=== PATIENT | male | born 1940 | race Caucasian/White ===

== ENCOUNTER 2016-10-03 20:47 | Emergency (ER) | payer MEDICARE, MEDICAID ==
[~2016-10-03] VITALS: Ht 172.7 cm; Wt 89.8 kg
[~2016-10-03 20:47] MED LIST: DUTA0.5C PO; ESOM20CA PO; METO50TA7 PO; ROSU5TAB PO; TAMS-12 PO
--- NOTE | 2016-10-03 22:00 | NUR ---
PT BIB DAUGHTER C/O LILIANA FLANK PAIN SINCE YESTERDAY WITH ONE EPISODE OF HEMATURIA ON MONDAY. DENIES N/V/D. DENIES HEMATURIA OR DYSURIA CURRENTLY. NAD NOTED. RESP EVEN UNLABORED. SKIN WARM NONDIAPHORETIC. NAD NOTED. AMBULATORY WITH STEADY GAIT. IN ER BED 12.
[2016-10-03 22:01] LABS: APPEARANCE,URINE CLEAR (CLEAR); BILIRUBIN,URINE NEGATIVE (NEGATIVE); BLOOD, URINE 2+ Ery/uL (NEGATIVE); COLOR,URINE YELLOW (YELLOW); KETONES,URINE NEGATIVE (NEGATIVE); LEUKOCYTE ESTERASE ,URINE NEGATIVE (NEGATIVE); NITRITE, URINE NEGATIVE (NEGATIVE); PROTEIN,URINE NEGATIVE (NEGATIVE); UGLUCOSE NEGATIVE (NEGATIVE); UROBILINOGEN,URINE 0.2 EU/dL (0.2)
[2016-10-03 22:06] LABS: BASOPHILS % (AUTO) 0.3 % (0.0-2.0); EOSINOPHILS # (AUTO) 0.2 /CMM (0.0-0.7); EOSINOPHILS % (AUTO) 1.9 % (0.0-6.0); HEMATOCRIT 44 % (39-51); HEMOGLOBIN 14.5 g/dL (13.5-17.5); LYMPHOCYTES # (AUTO) 2.1 /CMM (0.8-4.8); LYMPHOCYTES % (AUTO) 21.7 % (20.0-44.0); MEAN CORPUSCULAR HEMOGLOBIN 27 PG (26.0-33.0); MEAN CORPUSCULAR HGB CONC 33 g/dl (31.0-36.0); MEAN CORPUSCULAR VOLUME 82 fL (80-96); MONOCYTES # (AUTO) 0.7 /CMM (0.1-1.30); MONOCYTES % (AUTO) 7.9 % (2.0-12.0); NEUTROPHILS # (AUTO) 6.4 /CMM (1.8-8.9); NEUTROPHILS % (AUTO) 68.2 % (43.0-81.0); PLATELET COUNT (AUTO) 137 /CMM (150-450); RDW COEFFICIENT OF VARIATION 13.4 (11.5-15.0); WHITE BLOOD COUNT (AUTO) 9.4 K/uL (4.3-11.0)
[2016-10-03 22:06] LABS: ADD URINE CULTURE NO; BACTERIA,URINE None seen /HPF (None Seen); SQUAMOUS EPITHELIAL CELL,UR Rare /HPF (None Seen); WBC,URINE 0-2 /HPF (0-3)
[2016-10-03 22:15] LABS: CALCIUM, SERUM 9.7 mg/dL (8.5-10.1); CREATININE 1.7 mg/dL (0.6-1.3); POTASSIUM 4.5 mmol/L (3.5-5.1)
[2016-10-03 22:20] LABS: ALBUMIN 4.5 g/dL (3.4-5.0); BILIRUBIN,DIRECT 0.1 mg/dL (0.0-0.2); BILIRUBIN,TOTAL 0.6 mg/dL (0.2-1.0); TOTAL PROTEIN, SERUM 7.8 g/dL (6.4-8.2)
[2016-10-03 22:21] LABS: INR 1.16 (0.87-1.13); PROTHROMBIN TIME 12.5 SECS (9.5-12.7)
[2016-10-03] MEDS ORDERED: ONDANSETRON 4 MG TAB.RAPDIS ONE (23:05)
[2016-10-03] MEDS ORDERED: HYDROCODONE/APAP 10/325MG 1 EA TABLET ONE (23:06)
--- NOTE | 2016-10-03 23:11 | NUR ---
PT REFUSED JOHNY AND KLEVER, STATING "IT WILL MAKE ME DROWSY. I HAVE GOOD TYLENOL AT HOME, VERY GOOD TYLENOL."
--- NOTE | 2016-10-03 23:16 | NUR ---
Patient discharged to home in stable condition. Written and verbal after care instructions given. Patient verbalizes understanding of instruction. AMBULATORY WITH STEADY GAIT. NAD NOTED. PT CHOOSES TO LEAVE WITHOUT CT SCAN ORDERED.
[2016-10-03 23:19] VITALS: BP 164/85
[2016-10-03] MEDS ORDERED: ONDANSETRON 4 MG TAB.RAPDIS SL ONE (23:30)
[2016-10-03] MEDS ORDERED: HYDROCODONE/APAP 10/325MG 1 EA TABLET PO ONE (23:30)
== END 2016-10-03 23:22 | disposition home or self-care (01) ==
LOC: ER 20:49
DX: R10.9 Unspecified abdominal pain (principal); R31.29 Other microscopic hematuria; I10 Essential (primary) hypertension
CPT/HCPCS: 36415; 80048; 80076; 81001; 83690; 85025; 85730; 99284; A4606; 81000-TC; Q0162; Z7610

== ENCOUNTER 2017-08-16 10:24 | Emergency (ER) | payer MEDICARE, MEDICAID ==
[~2017-08-16] VITALS: Ht 165.1 cm; Wt 87.5 kg
--- NOTE | 2017-08-16 10:30 | NUR ---
PT CAME WITH C/O COUGH/FEVER AND SOB X 1 MONTH. NAD NOTED. VSS. SEEN BY MD FOR EVAL. SAFETY AND COMFORT MEASURES PROVIDED. WILL MONITOR.
--- NOTE | 2017-08-16 10:50 | NUR ---
IV ACCESS STARTED, BLOOD DRAWN FOR LABS. MEDICATED ORDERED.
[2017-08-16] MEDS ORDERED: ALBUTEROL FS 2.5 MG/0.5 ML VIAL.NEB NEB ONE (11:00)
[2017-08-16] MEDS ORDERED: DEXAMETHASONE SOD PHOSPHATE 10 MG/ML VIAL IV ONE (11:00)
[2017-08-16] MEDS ORDERED: IPRATROPIUM NEB FS 0.5 MG/2.5 ML AMPUL.NEB NEB ONE (11:00)
--- NOTE | 2017-08-16 11:00 | NUR ---
RT AT BS FOR BREATHING TX.
[2017-08-16] MEDS ORDERED: ALBUTEROL FS 2.5 MG/3 ML VIAL.NEB ONE (11:08)
[2017-08-16] MEDS ORDERED: IPRATROPIUM NEB FS 0.5 MG/2.5 ML AMPUL.NEB ONE (11:08)
[2017-08-16 11:15] LABS: BASOPHILS # (AUTO) 0.1 /CMM (0.0-0.2); BASOPHILS % (AUTO) 0.9 % (0.0-2.0); EOSINOPHILS # (AUTO) 0.1 /CMM (0.0-0.7); EOSINOPHILS % (AUTO) 1.6 % (0.0-6.0); HEMATOCRIT 42 % (39-51); LYMPHOCYTES # (AUTO) 1.8 /CMM (0.8-4.8); LYMPHOCYTES % (AUTO) 23.7 % (20.0-44.0); MEAN CORPUSCULAR HEMOGLOBIN 27 PG (26.0-33.0); MEAN CORPUSCULAR HGB CONC 34 g/dl (31.0-36.0); MEAN CORPUSCULAR VOLUME 81 fL (80-96); MONOCYTES # (AUTO) 0.7 /CMM (0.1-1.30); MONOCYTES % (AUTO) 9.1 % (2.0-12.0); NEUTROPHILS # (AUTO) 4.9 /CMM (1.8-8.9); NEUTROPHILS % (AUTO) 64.7 % (43.0-81.0); PLATELET COUNT (AUTO) 168 /CMM (150-450); RDW COEFFICIENT OF VARIATION 12.4 (11.5-15.0); RED BLOOD CELL COUNT(AUTO) 5.17 MIL/uL (4.5-6.0); WHITE BLOOD COUNT (AUTO) 7.6 K/uL (4.3-11.0)
[2017-08-16] MEDS ORDERED: DEXAMETHASONE SOD PHOSPHATE 10 MG/ML VIAL ONE (11:18)
[2017-08-16 11:26] LABS: CALCIUM, SERUM 9.3 mg/dL (8.5-10.1); CARBON DIOXIDE 26 mmol/L (21-32); CHLORIDE 104 mmol/L (98-107); CREATININE 1.8 mg/dL (0.6-1.3); GLUCOSE 192 mg/dL (74-106); POTASSIUM 3.7 mmol/L (3.5-5.1); SODIUM SERUM 138 mmol/L (136-145); UREA NITROGEN, BLOOD 24 mg/dL (7-18)
[2017-08-16 11:28] LABS: INR 1.02 (0.85-1.15)
[2017-08-16 11:33] LABS: TROPONIN I < 0.017 ng/mL (0.00-0.056)
[2017-08-16 11:40] LABS: ALANINE AMINOTRANSFERASE 20 U/L (12-78); ALBUMIN 3.8 g/dL (3.4-5.0); ALKALINE PHOSPHATASE 54 U/L (46-116); ASPARTATE AMINOTRANSFERASE 12 U/L (15-37); B-TYPE NATRIURETIC PEPTIDE 193 PG/ML (0-125); BILIRUBIN,DIRECT 0.1 mg/dL (0.0-0.2); BILIRUBIN,TOTAL 0.6 mg/dL (0.2-1.0); TOTAL PROTEIN, SERUM 7.5 g/dL (6.4-8.2)
[2017-08-16] MEDS ORDERED: FUROSEMIDE 20 MG/2 ML VIAL IV ONE (12:00)
[2017-08-16] MEDS ORDERED: FUROSEMIDE 20 MG/2 ML VIAL ONE (12:10)
--- NOTE | 2017-08-16 12:40 | NUR ---
IV removed. Catheter intact and site benign. Pressure and 4x4 applied to site. No bleeding noted.
[2017-08-16 12:48] VITALS: BP 148/79
--- NOTE | 2017-08-16 12:48 | NUR ---
Patient discharged to home in stable condition. Written and verbal after care instructions given. Patient verbalizes understanding of instruction.
== END 2017-08-16 12:49 | disposition home or self-care (01) ==
LOC: ER 10:26
DX: R05 Cough (principal); J90 Pleural effusion, not elsewhere classified; J44.9 Chronic obstructive pulmonary disease, unspecified; I10 Essential (primary) hypertension; F10.10 Alcohol abuse, uncomplicated; Z87.891 Personal history of nicotine dependence
CPT/HCPCS: 36415; 71045; 80048; 80076; 83880; 84484; 85025; 85730; 93005; 94640 ×2; 96374; 96375; 99285; A4606; J1100; J1940; Z7610

== ENCOUNTER 2021-08-27 00:43 | Inpatient (IN) | payer MEDICARE, OTHER ==
[~2021-08-27] VITALS: Ht 172.7 cm; Wt 89.8 kg
--- NOTE | 2021-08-27 00:54 | NUR ---
TO ER BED 3. [id number] FROM HOME C/O SHARP LEFT SIDED CHEST PAIN/ARMPIT AREA STARTING SUDDENLY WHILE ASLEEP. PT DENIES NAUSEA AND VOMITING. PT CHANGED INTO GOWN AND CONNECTED TO MONITOR. NOT IN RESPIRATIRY DISTRESS. AWAITING MD HERNANDEZ.
--- NOTE | 2021-08-27 00:55 | NUR ---
XRAY AT BEDSIDE
[2021-08-27] MEDS ORDERED: ASPIRIN 325 MG TABLET ONE (00:58)
--- NOTE | 2021-08-27 00:59 | NUR ---
PANTOGRAPH MACHINE SET UP OPERATOR AT PT'S BEDSIDE
[2021-08-27] MEDS ORDERED: ASPIRIN 325 MG TABLET PO ONE (01:00)
--- NOTE | 2021-08-27 01:01 | NUR ---
PT REFUSED ASPIRIN DUE TO ALLERGY
--- NOTE | 2021-08-27 01:13 | NUR ---
COVID ANTIGEN SWAB COLLECTED AND SENT TO LAB
--- NOTE | 2021-08-27 01:13 | NUR ---
Leno otero in [place] - 08/27/21 at 0114 by ARSALAN COVID ANTIGEN SWAB COLLECTED AND SEND TO LAB
[2021-08-27 01:17] LABS: BASOPHILS # (AUTO) 0.1 K/uL (0.0-0.2); BASOPHILS % (AUTO) 1.2 % (0.0-2.0); EOSINOPHILS % (AUTO) 6.4 % (0.0-6.0); HEMATOCRIT 45 % (39-51); LYMPHOCYTES # (AUTO) 2.3 K/uL (0.8-4.8); LYMPHOCYTES % (AUTO) 35.3 % (20.0-44.0); MEAN CORPUSCULAR HGB CONC 33 g/dl (31.0-36.0); MEAN CORPUSCULAR VOLUME 81 fL (80-96); MONOCYTES # (AUTO) 0.6 K/uL (0.1-1.30); MONOCYTES % (AUTO) 8.9 % (2.0-12.0); NEUTROPHILS # (AUTO) 3.1 K/uL (1.8-8.9); NEUTROPHILS % (AUTO) 48.2 % (43.0-81.0); PLATELET COUNT (AUTO) 148 K/uL (150-450); RED BLOOD CELL COUNT(AUTO) 5.54 MIL/uL (4.5-6.0); WHITE BLOOD COUNT (AUTO) 6.5 K/uL (4.3-11.0)
[2021-08-27] MEDS ORDERED: IBUPROFEN 400 MG TABLET ONE (01:26)
[2021-08-27 01:29] LABS: CALCIUM, SERUM 10.4 mg/dL (8.5-10.1); CARBON DIOXIDE 26 mmol/L (21-32); CHLORIDE 103 mmol/L (98-107); CREATININE 1.9 mg/dL (0.6-1.3); GLUCOSE 87 mg/dL (74-106); POTASSIUM 3.8 mmol/L (3.5-5.1); SODIUM SERUM 139 mmol/L (136-145); UREA NITROGEN, BLOOD 21 mg/dL (7-18)
[2021-08-27] MEDS ORDERED: IBUPROFEN 400 MG TABLET PO ONE (01:30)
[2021-08-27 01:42] LABS: ALANINE AMINOTRANSFERASE 16 U/L (12-78); ALBUMIN 4.5 g/dL (3.4-5.0); ALKALINE PHOSPHATASE 51 U/L (46-116); ASPARTATE AMINOTRANSFERASE 8 U/L (15-37); BILIRUBIN,DIRECT 0.1 mg/dL (0.0-0.2); BILIRUBIN,TOTAL 0.3 mg/dL (0.2-1.0); TOTAL PROTEIN, SERUM 8.2 g/dL (6.4-8.2)
--- NOTE | 2021-08-27 03:25 | NUR ---
EPIC PANEL PAGED
--- NOTE | 2021-08-27 04:11 | NUR ---
REPORT GIVEN TO KHOI GAFFNEY FOR GORAN
[2021-08-27] MEDS ORDERED: ACETAMINOPHEN 325 MG TABLET PO PRN (04:30)
[2021-08-27] MEDS ORDERED: HYDROCODONE/APAP 5/325MG TABLET PO PRN (04:30)
[2021-08-27] MEDS ORDERED: MORPHINE SULFATE INJ 2 MG/ML DISP.SYRIN IV PRN (04:30)
[2021-08-27] MEDS ORDERED: MAGNESIUM HYDROXIDE 30 ML UDC PO PRN (04:30)
[2021-08-27] MEDS ORDERED: TEMAZEPAM 15 MG CAPSULE PO PRN (04:30)
[2021-08-27] MEDS ORDERED: ONDANSETRON HCL/PF 4 MG/2 ML VIAL IVP PRN (04:30)
[2021-08-27] MEDS ORDERED: Z GUARD REMEDY 4 OZ OINT TP PRN (04:30)
[2021-08-27] MEDS ORDERED: MAG HYDROX/AL HYDROX/SIMETH 30 ML UDC PO PRN (04:30)
--- NOTE | 2021-08-27 04:35 | NUR ---
RN NOTES RECEIVED CARE OF PATIENT FROM ER NURSE, PATIENT A/O X4, SWISS SPEAKING, ABLE TO MAKE NEEDS KNOWN WITH FACIAL AND HAND GESTURES, SPEAKS LITTLE [place]. PATIENT COMPLAINS OF CHEST PAIN, PAIN IS RELIEVED WITH REST. NO SIGNIFICANT FINDINGS UPON INITIAL NURSING ASSESSMENTS. PATIENT ON ROOM AIR, O2 SAT IS 99%, NO SOB NOTED, BREATHING EVEN AND UNLABORED. PATIENT IS ON TELE MONITOR CURRENTLY SHOWING NSR WITH HR OF 88BPM. PATIENT NOTED WITH IV ACCESS ON LAC G#18, PATENT AND FLUSHES WELL. SAFETY MEASURES IN PLACE. BED ALARM ON, BED AT LOWEST POSITION WITH WHEELS LOCKED IN PLACE, CALL LIGHT WITHIN REACH. WILL CONTINUE TO MONITOR PATIENT.
[2021-08-27 05:03] VITALS: BP 152/90
[2021-08-27] MEDS ORDERED: DEXL60CA3 PO (06:53)
[2021-08-27] MEDS ORDERED: LEVO50TA8 PO (06:53)
[2021-08-27] MEDS ORDERED: AMLO1CAP PO (06:53)
--- NOTE | 2021-08-27 06:56 | NUR ---
RN CLOSING NOTES WILL ENDORSE CARE OF PATIENT TO AM NURSE WHILE PATIENT IN BED, A/O X4, SLEEPING BUT WAKES UP TO NAME. PATIENT SHOWS NO DISTRESS OR COMPLAINS OF PAIN AT THIS MOMENT. PATIENT ON ROOM AIR, 02 SAT IS 98%, NO SOB NOTED. PATIENT'S TELE MONITOR SHOWS SINUS BRADYCARDIA WITH HR OF 64. ALL SAFETY MEASURES IMPLEMENTED THROUGHOUT SHIFT. ALL PATIENT NEEDS ATTENDED TO. WILL ENDORSE TO AM NURSE FOR GORAN.
[2021-08-27] MEDS ORDERED: PANTOPRAZOLE 40 MG TABLET.DR PO SCH (07:30)
[2021-08-27 08:00] VITALS: BP 143/76
[2021-08-27] MEDS ORDERED: IV NS 0.9% 1,000 ML IV PRN (08:30)
[2021-08-27] MEDS ORDERED: LEVOTHYROXINE SODIUM 50 MCG TABLET PO SCH (09:00)
[2021-08-27] MEDS ORDERED: ENOXAPARIN SODIUM 30 MG/0.3 ML DISP.SYRIN SQ SCH (09:00)
[2021-08-27] MEDS ORDERED: METOPROLOL SUCCINATE 50 MG TAB.SR.24H PO SCH (09:00)
[2021-08-27] MEDS ORDERED: TAMSULOSIN 0.4 MG CAP.SR.24H PO SCH (09:00)
[2021-08-27] MEDS ORDERED: Medication Not On Formulary EA (Amlodipine Besylate/Benazepril (Lotrel 10-20 Mg Capsule) PO SCH (09:00)
[2021-08-27] MEDS ORDERED: AMLODIPINE BESYLATE 10 MG TABLET PO SCH (09:00)
[2021-08-27] MEDS ORDERED: DUTASTERIDE (0.5 MG) 0.5 MG CAPSULE PO SCH (09:00)
[2021-08-27] MEDS ORDERED: ATORVASTATIN 10 MG TABLET PO SCH (09:00)
[2021-08-27] MEDS ORDERED: BENAZEPRIL HCL 20 MG TABLET PO SCH (09:00)
[2021-08-27 12:00] VITALS: BP 154/73
--- NOTE | 2021-08-27 16:52 | NUR ---
RN NOTE PT LEFT UNIT AT 1640 FOR D/C TO HOME. PT IN STABLE CONDITION. NO COMPLAINTS OF CHEST PAIN, D/C INSTRUCTIONS EXPLAINED AND GIVEN TO PT. PT VERBALIZED UNDERSTANDING. PT WAS PICKED UP BY DAUGHTER VIA [employer].
== END 2021-08-27 16:40 | disposition home or self-care (01) | DRG 206 ==
LOC: ER 00:50 → TELE1 04:00
PROVIDERS: ADMIT Internal Medicine; ATTEND Internal Medicine
DX: M94.0 Chondrocostal junction syndrome [Tietze] (principal); J98.11 Atelectasis; Z88.8 Allergy status to other drugs, medicaments and biological substances; I12.9 Hypertensive chronic kidney disease with stage 1 through stage 4 chronic kidney disease, or unspecified chronic kidney disease; N40.0 Benign prostatic hyperplasia without lower urinary tract symptoms; E03.9 Hypothyroidism, unspecified; N18.9 Chronic kidney disease, unspecified; E78.00 Pure hypercholesterolemia, unspecified; K21.9 Gastro-esophageal reflux disease without esophagitis; M89.9 Disorder of bone, unspecified; E78.5 Hyperlipidemia, unspecified; E83.52 Hypercalcemia
CPT/HCPCS: 36415; 71045-TC; 80048-TC; 80076-TC; 83880; 84484-TC; 85025-TC; 85730-TC; 87081-TC; 93307-TC; C9803; G0378; J1650

== ENCOUNTER 2024-04-16 01:02 | Emergency (ER) | payer MEDICARE, OTHER ==
[~2024-04-16] VITALS: Ht 162.6 cm; Wt 90.7 kg
[~2024-04-16 01:02] MED LIST changes: +AMLO1CAP PO; +DEXL60CA3 PO; -ESOM20CA PO; +LEVO50TA8 PO
[2024-04-16] MEDS ORDERED: KETOROLAC TROMETHAMINE INJ 30 MG/ML VIAL ONE (02:08)
[2024-04-16] MEDS ORDERED: BACLOFEN (10 MG) 10 MG TABLET ONE (02:08)
[2024-04-16] MEDS ORDERED: ACETAMINOPHEN ES 500 MG TABLET ONE (02:08)
[2024-04-16] MEDS: ACETAMINOPHEN ES 500 MG TABLET PO ONE (02:12)
[2024-04-16] MEDS: BACLOFEN (10 MG) 10 MG TABLET PO ONE (02:12)
[2024-04-16] MEDS: KETOROLAC TROMETHAMINE INJ 30 MG/ML VIAL IM ONE (02:12)
[2024-04-16] MEDS ORDERED: KETO10TA2 PO (02:57)
[2024-04-16] MEDS ORDERED: BACL5TAB PO (02:57)
[2024-04-16 03:04] VITALS: BP 180/86; TEMP 98.6; O2SAT 94
== END 2024-04-16 03:04 | disposition home or self-care (01) ==
LOC: ER 01:04
DX: G89.29 Other chronic pain (principal); M54.6 Pain in thoracic spine; I10 Essential (primary) hypertension; Z88.6 Allergy status to analgesic agent; Z88.7 Allergy status to serum and vaccine; Z79.899 Other long term (current) drug therapy; Z87.438 Personal history of other diseases of male genital organs
CPT/HCPCS: 99283; 96372; J1885